=== PATIENT | female | born 1985 | race Two or more races ===

== ENCOUNTER 2022-12-16 22:12 | Emergency (ER) | payer MEDICAID, OTHER ==
[~2022-12-16] VITALS: Ht 167.6 cm; Wt 68.1 kg
[2022-12-16 23:25] LABS: Basophils # (auto) 0.1 10 ^3/uL (0-0.2); Basophils % (auto) 0.9 % (0.0-2.0); Eosinophils # (auto) 0.2 10 ^3/uL (0-0.8); Eosinophils % (auto) 2.7 % (0.0-7.0); Hematocrit 37.7 % (36.0-46.0); Hemoglobin 12.6 g/dL (12.2-16.2); Lymphocytes # (auto) 1.5 10 ^3/uL (0.4-5.4); Lymphocytes % (auto) 16.5 % (10.0-50.0); Mean Corpuscular Hgb Conc. 33.5 g/dL (32.0-36.0); Mean Corpuscular Volume 89.7 fL (80.0-100.0); Monocytes # (auto) 0.6 10 ^3/uL (0-1.3); Monocytes % (auto) 6.4 % (0.0-12.0); Neutrophils # (auto) 6.6 10 ^3/uL (1.6-8.6); Neutrophils % (auto) 73.5 % (37.0-80.0); Nucleated Red Blood Cells % 0.1 %; Red Cell Distribution Width 13.6 % (11.8-14.3)
[2022-12-16 23:40] LABS: Albumin 3.6 g/dL (3.4-5.0); BUN/Creatinine Ratio 9.5 (10.0-20.0); Calcium 8.7 mg/dL (8.5-10.1); Potassium 3.1 mmol/L (3.5-5.1)
[2022-12-16 23:44] LABS: Total Protein 7.1 g/dL (6.4-8.2)
[2022-12-17] MEDS ORDERED: POTASSIUM CHL 20 Meq TABLET PO ONE
[2022-12-17] MEDS ORDERED: SODIUM CHLORIDE 0.9% 1,000 ML IV ONE
[2022-12-17 00:34] LABS: Urine Bacteria FEW /hpf (None Seen); Urine Blood TRACE /uL (Negative); Urine Hyaline Cast FEW /lpf (0 - 2); Urine Mucus FEW (None Seen); Urine Specific Gravity 1.024 (1.001-1.035); Urine WBC 16 /hpf (0 - 5)
[2022-12-17] MEDS ORDERED: ACETAMINOPHEN 325 MG TAB PO ONE (01:00)
[2022-12-17 05:00] VITALS: BP 92/52
== END 2022-12-17 06:17 | disposition home or self-care (01) ==
LOC: ER 22:12 → EDBD 22:12 → ER 12-17 05:44
DX: R55 Syncope and collapse (principal); R42 Dizziness and giddiness
CPT/HCPCS: 36415; 70450; 71045; 80053; 81001; 85025; 93005; 96360; 99285; J7030

== ENCOUNTER 2024-09-28 11:15 | Observation (INO) | payer MEDICAID ==
[~2024-09-28 11:15] MED LIST: NITR-87 PO
--- NOTE | 2024-09-28 12:39 | DVHDS2 ---
Physician Discharge Progress N Final Diagnosis: ptl 33 wks Operations or Procedures: Operations or Procedures nst,sono Condition on Discharge: Good Disposition: Home Discharge Instructions: Diet: Consistent carbohydrate Activity: Light activity Medications: na Follow Up Care: Specialist: 1w Discharge Statement: "Patient was advised to return to the ER or call 911 if any headaches, dizziness, shortness of breath, chest pain, abdominal pain, bleeding, fevers, or worsening of medical condition. Patient was counseled about treatment plan, medications, possible side effects, patientverbalized understanding. All questions were answered to the best of my ability. This discharge took greater then 30 minutes in planning, reviewing documentation, counseling the patient, and discussing with other team members." Visit Coding OBGYN Date of Service: Sep 28, 2024 Billing Provider: JUWAN GAMINO DO GRAPHIC ART SALES REPRESENTATIVE Common Visit Codes: 75961-[id number] OBS CARE (HIGH) GRAPHIC ART SALES REPRESENTATIVE Procedure Codes: 37303-77- NON-STRESS TEST JUWAN GAMINO DO Sep 28, 2024 12:39
[2024-09-28] MEDS ORDERED: NIFE10CA52 PO (13:20)
== END 2024-09-28 13:29 | disposition home or self-care (01) ==
LOC: UNDOADMOB 11:15 → LDRP 11:15
PROVIDERS: ADMIT Obstetrics & Gynecology; ATTEND Obstetrics & Gynecology
DX: O60.03 Preterm labor without delivery, third trimester (principal); Z3A.33 33 weeks gestation of pregnancy; Z79.899 Other long term (current) drug therapy
CPT/HCPCS: 76818; 81002; 94760; G0378

== ENCOUNTER 2024-10-05 06:27 | Observation (INO) | payer MEDICAID ==
[~2024-10-05 06:27] MED LIST changes: +NIFE10CA52 PO
--- NOTE | 2024-10-05 10:41 | DVH ---
CLINICAL HISTORY: labor. COMPARISON: Prior ultrasound dated 03/06/2024. TECHNIQUE: biophysical profile was performed. Transabdominal sonographic images of the fetus we re obtained. Transvaginal examination was also done to evaluate the cervix. FINDINGS: The fetus is in cephalic position. heart rate measures 155 BPM. Amniotic fluid index measures 9.5 cm. The placenta is anterior/fundal in position. No visualized evidence for placenta pre via or abruption. Cervical length measures 3.5 cm on transvaginal examination. Cervix appears closed. BPP profile is an overall score of 8/8, with 2/2 points for breathing, with at least one episode of breathing over a 30 second duration during a 30 minute observation, 2/2 points for m ovements, with 3 or more discrete body or limb movements, 2/2 points for tone, with one or more episodes of extremity extension with return to flexion, or opening and closing of hand, and 2/ 2 points for amniotic fluid, with at least 1 pocket of amniotic fluid that measures 2 cm in 2 perpend icular planes. IMPRESSION: 1. BPP score of 8/8. 2. Cervix appears closed with cervical length measuring 3.5 cm.
--- NOTE | 2024-10-07 08:14 | DVHDS2 ---
Physician Discharge Progress N Final Diagnosis: ptl 34 wks Operations or Procedures: Operations or Procedures nst,sono Condition on Discharge: Good Disposition: Home Discharge Instructions: Diet: Regular Activity: Light activity Medications: na Follow Up Care: Specialist: 1w Discharge Statement: "Patient was advised to return to the ER or call 911 if any headaches, dizzines s, shortness of breath, chest pain, abdominal pain, bleeding, fevers, or worsening of medical condition. Patient was counseled about treatment plan, medications, possible side effects, patientverbalized understanding. All questions were answered to the best of my ability. This discharge took greater then 30 minutes in planning, reviewing documentation, counseling the patient, and discussing with other team members." Visit Coding OBGYN Date of Service: Oct 05, 2024 Billing Provider: JUWAN GAMINO DO ASSEMBLY LEAD PERSON Common Visit Codes: [id number] INP/OBS CARE (HIGH) ASSEMBLY LEAD PERSON Procedure Codes: 12513-51- NON-STRESS TEST JUWAN GAMINO DO Oct 07, 2024 08:14
== END 2024-10-05 11:04 | disposition home or self-care (01) ==
LOC: LDRP 09:30 → UNDOADMOB 09:30 → LDRP 09:44
PROVIDERS: ADMIT Obstetrics & Gynecology; ATTEND Obstetrics & Gynecology
DX: O60.03 Preterm labor without delivery, third trimester (principal); Z3A.34 34 weeks gestation of pregnancy; Z79.899 Other long term (current) drug therapy; Z98.890 Other specified postprocedural states
CPT/HCPCS: 59025; 76817; 76819; 81002; 94760; G0378

== ENCOUNTER 2024-10-12 07:52 | Observation (INO) | payer MEDICAID ==
[2024-10-12] MEDS ORDERED: PREN-96 PO ×2 (08:49)
--- NOTE | 2024-10-12 08:56 | DVH ---
CLINICAL HISTORY: labor. COMPARISON: US BIOPHYSICAL PROFILE on DOS: 10/05/24 TECHNIQUE: biophysical profile was performed. Transabdominal sonographic images of the fetus we re obtained. Transvaginal examination was also performed to evaluate the cervix. FINDINGS: The fetus is in cephalic position. heart rate measures 128 BPM. Amniotic fluid index measures 12.2 cm. The placenta is anterior in position with no evidence of previa or abruption. Cervi x is closed and measures 3.5 cm in length on transvaginal exam. BPP profile is an overall score of 8/8, with 2/2 points for breathing, with at least one episode of breathing over a 30 second duration during a 30 minute observation, 2/2 points for m ovements, with 3 or more discrete body or limb movements, 2/2 points for tone, with one or more episodes of extremity extension with return to flexion, or opening and closing of hand, and 2/ 2 points for amniotic fluid, with at least 1 pocket of amniotic fluid that measures 2 cm in 2 perpend icular planes. IMPRESSION: 1. BPP score of 8/8. 2. Cervix is closed and measures 3.5 cm in length.
--- NOTE | 2024-10-12 17:06 | DVHDS2 ---
Physician Discharge Progress N Final Diagnosis: ptl,ama 35wks Operations or Procedures: Operations or Procedures nst,sono Condition on Discharge: Good Disposition: Home Discharge Instructions: Diet: Regular Activity: Light activity Medications: na Follow Up Care: Specialist: 1w Discharge Statement: "Patient was advised to return to the ER or call 911 if any headaches, dizzi ness, shortness of breath, chest pain, abdominal pain, bleeding, fevers, or worsening of medical condition. Patient was counseled about treatment plan, medications, possible side effects, patientverbalized understanding. All questions were answered to the best of my ability. This discharge took greater then 30 minutes in planning, reviewing documentation, counseling the patient, and discussing with other team members." Visit Coding OBGYN Date of Service: Oct 12, 2024 Billing Provider: JUWAN GAMINO DO CUSTOMER DATA TECHNICIAN Common Visit Codes: [id number]-[id number] INP/OBS CARE (HIGH) CUSTOMER DATA TECHNICIAN Procedure Codes: 98857-07- NON-STRESS TEST JUWAN GAMINO DO Oct 12, 2024 17:06
== END 2024-10-12 09:14 | disposition home or self-care (01) ==
LOC: LDRP 07:52
PROVIDERS: ADMIT Obstetrics & Gynecology; ATTEND Obstetrics & Gynecology
DX: O60.03 Preterm labor without delivery, third trimester (principal); O09.513 Supervision of elderly primigravida, third trimester; Z98.890 Other specified postprocedural states; Z79.899 Other long term (current) drug therapy; Z3A.35 35 weeks gestation of pregnancy
CPT/HCPCS: 59025; 76819; 81002; 94760; G0378

== ENCOUNTER 2024-10-19 07:14 | Observation (INO) | payer MEDICAID ==
[~2024-10-19 07:14] MED LIST changes: +PREN-96 PO
--- NOTE | 2024-10-19 10:37 | DVH ---
CLINICAL HISTORY: labor. Advanced maternal age. COMPARISON: US BIOPHYSICAL PROFILE on DOS: 10/12/24, US BIOPHYSICAL PROFILE on DOS: 10/05/24 TECHNIQUE: biophysical profile was performed. Transabdominal sonographic images of the fetus we re obtained. Transvaginal imaging was performed to evaluate the cervix. FINDINGS: The fetus is in cephalic position. heart rate measures 138 BPM. Amniotic fluid index measures 11.1 cm. The placenta is anterior in position without visualized evidence of previa or abrup tion. Cervix measures 3.5 cm in length on transvaginal images. Cervix is closed. BPP profile is an overall score of 8/8, with 2/2 points for breathing, with at least one episode of breathing over a 30 second duration during a 30 minute observation, 2/2 points for m ovements, with 3 or more discrete body or limb movements, 2/2 points for tone, with one or more episodes of extremity extension with return to flexion, or opening and closing of hand, and 2/ 2 points for amniotic fluid, with at least 1 pocket of amniotic fluid that measures 2 cm in 2 perpend icular planes. IMPRESSION: 1. BPP score of 8/8. 2. Cervix is closed and measures up to 3.5 cm in length.
--- NOTE | 2024-10-21 07:55 | DVHDS2 ---
Physician Discharge Progress N Final Diagnosis: iup at 36wks ptl,ama Operations or Procedures: Operations or Procedures nst reactive reviewed Condition on Discharge: Good Disposition: Home Discharge Instructions: Diet: Regular Activity: No Restrictions, As Tolerated Medications: na Follow Up Care: Specialist: 1w Discharge Statement: "Patient was advised to return to the ER or call 911 if any headaches, dizziness, shortness of breath, chest pain, abdominal pain, bleeding, fevers, or worsening of medical condition. Patient was counseled about treatment plan, medications, possible side effects, patientverbalized understanding. All questions were answered to the best of my ability. This discharge took greater then 30 minutes in planning, reviewing doc umentation, counseling the patient, and discussing with other team members." Visit Coding OBGYN Date of Service: October 19, 2024 Billing Provider: JUWAN GAMINO DO INSTALLATION SUPERVISOR Common Visit Codes: 27150-[id number] OBS CARE (HIGH) INSTALLATION SUPERVISOR Procedure Codes: 84150-99- NON-STRESS TEST JUWAN GAMINO DO October 21, 2024 07:55
== END 2024-10-19 10:50 | disposition home or self-care (01) ==
LOC: UNDOADMOB 09:32 → LDRP 09:32 → UNDODISOB 10:50
PROVIDERS: ADMIT Obstetrics & Gynecology; ATTEND Obstetrics & Gynecology
DX: O60.03 Preterm labor without delivery, third trimester (principal); O09.523 Supervision of elderly multigravida, third trimester; Z98.890 Other specified postprocedural states; Z79.899 Other long term (current) drug therapy; Z3A.36 36 weeks gestation of pregnancy
CPT/HCPCS: 59025; 76817; 76819; 81002; 94760; G0378

== ENCOUNTER 2024-10-26 06:40 | Observation (INO) | payer MEDICAID ==
[~2024-10-26] VITALS: Ht 167.6 cm; Wt 70.8 kg
--- NOTE | 2024-10-26 10:06 | DVH ---
BIOPHYSICAL PROFILE HISTORY: AMA TECHNIQUE: Multiple transabdominal real-time grayscale sonographic images through the gravid uterus of the fetus with duplex Doppler color flow and M-mode spectral analysis FINDINGS: BIOPHYSICAL PROFILE: breathing score: 2 movement score: 2 tone score: 2 Quantitative ESTELA score: 2 (ESTELA: 10.6 Cm.) Total score: 8 The cervix not well visualized. Single live fetus in cephalic presentation. heart rate 131 beats per minute. Anterior placenta without previa or abruption IMPRESSION: Biophysical profile score: 8
--- NOTE | 2024-10-27 12:59 | DVHDS2 ---
Physician Discharge Progress N Final Diagnosis: iup at 37wks ama Operations or Procedures: Operations or Procedures nst reviewed reactive ,sosno Condition on Discharge: Good Disposition: Home Discharge Instructions: Diet: Regular Activity: Light activity Medications: na Follow Up Care: Specialist: 1w Discharge Statement: "Patient was advised to return to the ER or call 911 if any headaches, dizziness, shortness of breath, chest pain, abdominal pain, bleeding, fevers, or worsening of medical condition. Patient was counseled about treatment plan, medications, possible side effects, patient�verbalized understanding. All questions were answered to the best of my ability. This discharge took greater then 30 minutes in planning, reviewing documentation, counseling the patient, and discussing with other team members." Visit Coding OBGYN Date of Service: October 26, 2024 Billing Provider: JUWAN GAMINO DO AIRLINE SECURITY REPRESENTATIVE Common Visit Codes: 55431-JSIIAFG OBS CARE (HIGH) AIRLINE SECURITY REPRESENTATIVE Procedure Codes: 46562-31- NON-STRESS TEST JUWAN GAMINO DO October 27, 2024 12:59
== END 2024-10-26 10:23 | disposition home or self-care (01) ==
LOC: LDRP 08:46 → UNDOADMOB 08:46 → LDRP 08:56
PROVIDERS: ADMIT Obstetrics & Gynecology; ATTEND Obstetrics & Gynecology
DX: O62.9 Abnormality of forces of labor, unspecified (principal); O09.523 Supervision of elderly multigravida, third trimester; Z3A.37 37 weeks gestation of pregnancy; Z79.899 Other long term (current) drug therapy
CPT/HCPCS: 59025; 76819; 81002; 94760; G0378

== ENCOUNTER 2024-11-02 06:39 | Observation (INO) | payer MEDICAID ==
--- NOTE | 2024-11-02 09:57 | DVH ---
BIOPHYSICAL PROFILE HISTORY: AMA TECHNIQUE: Multiple transabdominal real-time grayscale sonographic images through the gravid uterus of the fetus with duplex Doppler color flow and M-mode spectral analysis FINDINGS: BIOPHYSICAL PROFILE: breathing score: 2 movement score: 2 tone score: 2 Quantitative ESTELA score: 2 (ESTELA: 9.2 Cm.) Total score: 8 The cervix not well visualized. Single live fetus in cephalic presentation. heart rate 130 beats per minute. Grade 2 anterior placenta without previa or abruption IMPRESSION: Biophysical profile score: 8/8
--- NOTE | 2024-11-02 11:51 | DVHDS2 ---
Physician Discharge Progress N Final Diagnosis: ama 38wks Operations or Procedures: Operations or Procedures nst reactive reviwed Condition on Discharge: Good Disposition: Home Discharge Instructions: Diet: Regular Activity: Light activity Medications: na Follow Up Care: Specialist: 4d Discharge Statement: "Patient was advised to return to the ER or call 911 if any headaches, dizziness, shortness of breath, chest pain, abdominal pain, bleeding, fevers, or worsening of medical condition. Patient was counseled about treatment plan, medications, possible side effects, patientverbalized understanding. All questions were answered to the best of my ability. This discharge took greater then 30 minutes in planning, reviewing documentation, counseling the patient, and discussing with other team members." Visit Coding OBGYN Date of Service: November 02, 2024 Billing Provider: JUWAN GAMINO DO MANAGER TECHNOLOGY Common Visit Codes: [id number]-[id number] OBS CARE (HIGH) MANAGER TECHNOLOGY Procedure Codes: 85749-43- NON-STRESS TEST JUWAN GAMINO DO November 02, 2024 11:51
== END 2024-11-02 10:10 | disposition home or self-care (01) ==
LOC: LDRP 08:40
PROVIDERS: ADMIT Obstetrics & Gynecology; ATTEND Obstetrics & Gynecology
DX: O09.523 Supervision of elderly multigravida, third trimester (principal); Z3A.38 38 weeks gestation of pregnancy; Z79.899 Other long term (current) drug therapy
CPT/HCPCS: 76819; 81002; 94760; G0378; 59025

== ENCOUNTER 2024-11-03 20:26 | Observation (INO) | payer MEDICAID ==
--- NOTE | 2024-11-08 13:38 | DVHDS2 ---
Physician Discharge Progress N Final Diagnosis: labor check 37wks Operations or Procedures: Operations or Procedures nst reactive reviwed,sono Condition on Discharge: Good Disposition: Home Discharge Instructions: Diet: Regular Activity: No Restrictions, As Tolerated Follow Up/Referral: [facility]:00 AM EL 11/06/24. [facility]. Medications: SIGUQ TOMANDO ALLYSSA PRENATALES Follow Up Care: Specialist: 2d Discharge Statement: "Patient was advised to return to the ER or call 911 if any headaches, dizziness, shortness of breath, chest pain, abdominal pain, bleeding, fevers, or worsening of medical condition. Patient was counseled about treatment plan, medications, possible side effects, patientverbalized understanding. All questions were answered to the best of my ability. This discharge took greater then 30 minutes in planning, reviewing documentation, counseling the patient, and discussing with other team members." Visit Coding OBGYN Date of Service: November 03, 2024 Billing Provider: JUWAN GAMINO DO FINANCIAL SERVICES INTERNSHIP Common Visit Codes: [id number] OBS CARE (HIGH) FINANCIAL SERVICES INTERNSHIP Procedure Codes: 32230-88- NON-STRESS TEST JUWAN GAMINO DO November 08, 2024 13:38
== END 2024-11-03 22:24 | disposition home or self-care (01) ==
LOC: LDRP 20:26
PROVIDERS: ADMIT Obstetrics & Gynecology; ATTEND Obstetrics & Gynecology
DX: O62.9 Abnormality of forces of labor, unspecified (principal); Z98.890 Other specified postprocedural states; Z79.899 Other long term (current) drug therapy; Z3A.38 38 weeks gestation of pregnancy
CPT/HCPCS: 59025; 81002; 94760; G0378

== ENCOUNTER 2024-11-04 01:00 | Observation (INO) | payer MEDICAID ==
[~2024-11-04] VITALS: Ht 167.6 cm; Wt 70.3 kg
--- NOTE | 2024-11-04 02:32 | DVHDS2 ---
Physician Discharge Progress N Final Diagnosis: IUP AT 38WKS DECREASED MOVEMENT ,AMA Operations or Procedures: Operations or Procedures NST REACTIVE REVIEWED,SONO Condition on Discharge: Good Disposition: Home Discharge Instructions: Diet: Regular Activity: No Restrictions, As Tolerated Medications: NA Follow Up Care: Specialist: FU IN 1 DAY Discharge Statement: "Patient was advised to return to the ER or call 911 if any headaches, dizziness, shortness of breath, chest pain, abdominal pain, bleeding, fevers, or worsening of medical condition. Patient was counseled about treatment plan, medications, possible side effects, patientverbalized understanding. All questions were answered to the best of my ability. This discharge took greater then 30 minutes in planning, reviewing documentation, counseling the patient, and discussing with other team members." Visit Coding OBGYN Date of Service: November 04, 2024 Billing Provider: JUWAN GAMINO DO CRAB STEAMER Common Visit Codes: [id number] OBS CARE (HIGH) CRAB STEAMER Procedure Codes: 98040-35- NON-STRESS TEST JUWAN GAMINO DO November 04, 2024 02:32
--- NOTE | 2024-11-04 05:09 | DVH ---
BIOPHYSICAL PROFILE HISTORY: Decreased movement Comparison Study: US BIOPHYSICAL PROFILE on DOS: 11/02/24, US BIOPHYSICAL PROFILE on DOS: 10/26/24, US B IOPHYSICAL PROFILE on DOS: 10/19/24 TECHNIQUE: Multiple real-time grayscale sonographic images through the gravid uterus of the fetus wi th duplex Doppler color flow and M-mode spectral analysis FINDINGS: BIOPHYSICAL PROFILE: breathing score: 2 movement score: 2 tone score: 2 Quantitative ESTELA score: 2 (ESTELA: 0.6 Cm.) Total score: 8 of 8 The cervix not imaged Single live fetus in vertex presentation. heart rate 153 beats per minute. placenta without previa or abruption Single live fetus at 38 weeks 5 days Biophysical profile score 8 of 8 corresponding to an DAVID of 11/13/2024 IMPRESSION: 1. Biophysical profile score: 8 of 8
== END 2024-11-04 03:06 | disposition home or self-care (01) ==
LOC: LDRP 01:00
PROVIDERS: ADMIT Obstetrics & Gynecology; ATTEND Obstetrics & Gynecology
DX: O36.8130 Decreased fetal movements, third trimester, not applicable or unspecified (principal); O09.523 Supervision of elderly multigravida, third trimester; Z98.890 Other specified postprocedural states; Z79.899 Other long term (current) drug therapy; Z3A.38 38 weeks gestation of pregnancy
CPT/HCPCS: 59025; 76819; 81002; 94760; G0378

== ENCOUNTER 2024-11-04 15:30 | Inpatient (IN) | payer MEDICAID ==
[~2024-11-04] VITALS: Ht 167.6 cm; Wt 70.3 kg
[2024-11-04 17:10] LABS: Fern Testing Positive
--- NOTE | 2024-11-04 17:25 | DVHHP2 ---
OB CC & HPI Date Date of Admission: November 04, 2024 Patient Identification: : 4 Para: 3 EGA: 38.5 Chief Complaints: Reason for admission: rupture of membranes History of Present Complaints 39y with Term IUP @ 38.5 wk, admitted with spontaneous rupture of membranes, clear fluid Has contractions every 7 to 10 mins. Denies vaginal bleeding. care w/ Dr Hawkins. Complicated by AMA. Past Medical History Cardiac: No pertinent Hx Pulmonary: No pertinent Hx Central Nervous System: No pertinent Hx GI: No pertinent Hx Hemotology/Oncology: No pertinent Hx Hepatobiliary: No pertinent Hx Psychiatric: No pertinent Hx Musculoskeletal: No pertinent Hx Rheumotologic: No pertinent Hx Infectious Disease: No peritnent Hx ENT: No pertinent Hx Renal/: No pertinent Hx Endocrine: No pertinent Hx Dermatology: No pertinent Hx Past Surgical History: No pertinent Hx OB History OB History Care: Good Care Ultrasounds: Normal mid trimester US Obstetrical Complications: None Medical Complications: None Allergies: Coded Allergies: NO KNOWN ALLERGIES (Unverified , 12/16/22) Home Meds Active Scripts Nitrofurantoin Monohydrate Mac (Macrobid) 100 Mg Cap, 100 MG PO BID for 5 Days, #10 CAP Prov:WENDY DAILEY MD 03/06/24 Reported Medications Vit W/ Ferrous Fumara ( One Daily) Daily Tab, 1 TAB PO DAILY, #90 TAB 3 Refills 10/12/24 Nifedipine (PROCARDIA CAPSULE) 10 Mg Cp, 10 MG PO, CAP 09/28/24 Review of Systems Constitutional: No symptom reported Ears, Nose, & Throat: No symptom reported Eyes: No symptom reported Pulmonary/Respiratory: No symptom reported Cardiovascular: No symptom reported Gastrointestinal: No symptom reported Genitourinary: No symptom reported Musculoskeletal: No symptom reported Skin: No symptom reported Psychiatric: No symptom reported Endocrine: No symptom reported Hemotologic/Lymphatic: No symptom reported OB Admission Exam Physical Exam Vitals: Afeb VS stable (See EHR) HEENT: NCAT Heart: Rhythm Normal Lungs: Clear Abdomen: Gravid Extremities: Normal Reflexes: Normal Cervical Dilatation: 3cm Effacement: Other (70%) Station: -2 Membranes: Ruptured Amniotic Fluid: Clear Heart Rate: 120's Accelerations: Accelerations Present Decelerations: No Decelerations Short Term Variability: Present Inside Account Executive Variability: Average (6-25) Contractions on Admission: 6-10 Minutes Apart Intensity: Mild OB Plan Plan Admitting Diagnosis: Term IUP 38.5 wk, spontaneous PROM AMA Plan: Induction Induction Methd: Pitocin protocol Other Plan: Admit. Pitocin augmentation Epidural, if desired Informed consent obtained for treatment and delivery Visit Coding OBGYN Date of Service: November 04, 2024 Billing Provider: MICHAEL RUIZ DO FIELD SERVICER Common Visit Codes: [id number] INP/OBS CARE (HIGH) MICHAEL RUIZ DO November 04, 2024 17:25
[2024-11-04] MEDS ORDERED: LIDOCAINE 2%HCL (LOCAL ANESTH.) INJ 20ML MDV IJ PRN (18:00)
[2024-11-04] MEDS ORDERED: BUTORPHANOL TARTRATE 2 MG/1 ML VIAL IV PRN ×2 (18:00)
[2024-11-04 18:37] LABS: Urine Bacteria None Seen /hpf (None Seen)
[2024-11-04 18:44] LABS: Basophils # (auto) 0 10 ^3/uL (0-0.2); Basophils % (auto) 0.5 % (0.0-2.0); Eosinophils # (auto) 0.1 10 ^3/uL (0-0.8); Eosinophils % (auto) 1.7 % (0.0-7.0); Hematocrit 36.4 % (36.0-46.0); Hemoglobin 12.1 g/dL (12.2-16.2); Lymphocytes # (auto) 1.7 10 ^3/uL (0.4-5.4); Mean Corpuscular Hemoglobin 29.1 pg (28.0-32.0); Mean Corpuscular Hgb Conc. 33.2 g/dL (32.0-36.0); Mean Corpuscular Volume 87.6 fL (80.0-100.0); Monocytes # (auto) 0.6 10 ^3/uL (0-1.3); Monocytes % (auto) 7.7 % (0.0-12.0); Neutrophils # (auto) 5.6 10 ^3/uL (1.6-8.6); Neutrophils % (auto) 69.1 % (37.0-80.0); Platelet Count (auto) 272 10^3/uL (140-450); Red Blood Cells 4.15 10^6/uL (4.0-5.20); Red Cell Distribution Width 13.8 % (11.8-14.3)
[2024-11-04 18:45] LABS: Urine Blood 1+ /uL (Negative); Urine Clarity Clear (Clear); Urine Color Light-Yellow (Yellow); Urine Protein, UAD Negative (Negative); Urine Specific Gravity 1.009 (1.001-1.035); Urine Squamous Epithelial Cell FEW /hpf (<5); Urine Urobilinogen Normal (Negative); Urine WBC 4 /HPF (0-5); Urine pH 6.5 (5.0-9.0)
[2024-11-04 18:55] LABS: Amphetamine Screen, Urine Neg (NEGATIVE); Barbiturate Scree,Urine Neg (NEGATIVE); Benzodiazephine Screen, Urine Neg (NEGATIVE); Cannabinoid Screen, Urine Neg (NEGATIVE); Cocaine Screen, Urine Neg (NEGATIVE); Opiate Scree,Urine Neg (NEGATIVE); Phencyclidine Screen, Urine Neg (NEGATIVE)
[2024-11-04 18:56] LABS: INR 0.88 (0.9-1.15); Partial Thromboplastin Time 25.1 SEC (24.5-34.5); Prothrombin Time 9.4 sec (9.3-11.8)
[2024-11-04 18:58] LABS: Alanine Aminotransferase 13 U/L (7-40); Anion Gap 13 (5-15); Aspartate Aminotransferase 27 U/L (13-40); BUN/Creatinine Ratio 15.1 (10.0-20.0); Bilirubin, Total 0.7 mg/dL (0.2-1.0); Blood Urea Nitrogen 11 mg/dL (9-23); Chloride 105 mmol/L (98-107); Glucose 92 mg/dL (74-106); Sodium 138 mmol/L (136-145)
[2024-11-04 19:01] LABS: Alkaline Phosphatase 216 U/L (46-116); Calcium 8.4 mg/dL (8.7-10.4); Carbon Dioxide 20 mmol/L (20-31); Potassium 3.4 mmol/L (3.5-5.1)
[2024-11-04] MEDS: LACTATED RINGER'S 1,000 ML IV SCH (19:02)
[2024-11-04] MEDS ORDERED: TERBUTALINE SULFATE 1 MG/ML 1ML VIAL SC PRN (20:00)
[2024-11-04] MEDS ORDERED: LACTATED RINGER'S 1,000 ML IV ONE (21:00)
[2024-11-04] MEDS ORDERED: NALOXONE HCL 0.4 MG/ML VIAL IV ONE (21:00)
[2024-11-04] MEDS ORDERED: LIDOCAINE 2%HCL (LOCAL ANESTH.) INJ 10ml MDV IJ ONE (21:00)
[2024-11-04] MEDS ORDERED: ePHEDrine SULFATE 50 MG/ML AMP IV ONE ×2 (21:00→21:30)
[2024-11-04] MEDS ORDERED: LIDOCAINE HCL 2 %PF INJ 10ML AMP IJ ONE (21:30)
[2024-11-05] MEDS: LACT. RINGERS/OXYTOCIN 20UNITS 1,000 ML IV SCH (00:02)
[2024-11-05] MEDS: WITCH HAZEL-GLYCERIN PAD TOP PRN (00:10)
[2024-11-05] MEDS: DERMOPLAST 60ML BOTTLE TOP PRN (00:10)
[2024-11-05] MEDS: PHISODERM TOP SOLN 240ML BTL TOP PRN (00:10)
[2024-11-05] MEDS: ROPIVACAINE HCL 200 ML ONE (05:35)
--- NOTE | 2024-11-05 07:20 | LDN2 ---
Labor and Delivery Note Date 11/05/24 Age 39 4 Para 4 EGA 38.6 Diagnosis PROM < 39 wk Vaginal Delivery: VTX Vacuum Assisted: No Placenta: Spontaneous Sex: Female Weight Pending Apgars 8/9 Amniotic Fluid: Clear Anesthesia Epidural Episiotomy: No Repaired with N/A no lacerations EBL 100 mL Labs Blood Bank 11/04/24 18:19: Blood Type O POSITIVE Complications None Comments/Significant Med Thad uncomplicated doing well To for recovery Visit Coding OBGYN Date of Service: November 05, 2024 Billing Provider: MICHAEL RUIZ DO UNDERWRITING OPERATIONS MANAGER Common Visit Codes: PROCEDURE ONLY UNDERWRITING OPERATIONS MANAGER Procedure Codes: [id number] OB CARE,VAG DELIVERY MICHAEL RUIZ DO November 05, 2024 07:20
[2024-11-05] MEDS ORDERED: ONDANSETRON ODT 4 MG TAB PO PRN (07:45)
[2024-11-05] MEDS ORDERED: ACETAMINOPHEN 325 MG TAB PO PRN (07:45)
[2024-11-05] MEDS: LACT. RINGERS/OXYTOCIN 20UNITS 500 ML IV ONE ×2 (08:00)
[2024-11-05 11:01] VITALS: BP 129/58; PULSE 96; RESP 18; TEMP 98.8
[2024-11-05 19:00] VITALS: BP 96/58; PULSE 69; RESP 14; TEMP 98.4; O2SAT 98
[2024-11-05] MEDS: IBUPROFEN 600 MG TAB PO PRN (19:45)
[2024-11-05 23:30] VITALS: BP 95/57; PULSE 63; RESP 16; TEMP 98.2; O2SAT 95
[2024-11-06 03:00] VITALS: BP 100/56; PULSE 84; RESP 14; TEMP 98.4; O2SAT 96
--- NOTE | 2024-11-06 03:14 | DVHDS2 ---
Physician Discharge Progress N Final Diagnosis: Term , delivered Operations or Procedures: Operations or Procedures Commentary: Commentary Normal labor/ delivery and course Condition on Discharge: Stable Disposition: Home Discharge Instructions: Diet: Regular Activity: Light activity Activity comment: Pelvic rest x 6 weeks Follow Up/Referral: [address] Hawkins Medications: Ibuprofen PRN pain Follow Up Care: Discharge Statement: "Patient was advised to return to the ER or call 911 if any headaches, dizziness, shortness of breath, chest pain, abdominal pain, bleeding, fevers, or worsening of medical condition. Patient was counseled about treatment plan, medications, possible side effects, patientverbalized understanding. All questions were answered to the best of my ability. This discharge took greater then 30 minutes in planning, reviewing documentation, counseling the patient, and discussing with other team members." Visit Coding OBGYN Date of Service: November 06, 2024 Billing Provider: MICHAEL RUIZ DO NOVELTY CANDY MAKER Common Visit Codes: 84741-VBE/OBS DISCH DAY <30MIN MICHAEL RUIZ DO November 06, 2024 03:14
[2024-11-06] MEDS ORDERED: IBU600T PO (03:20)
[2024-11-06 07:00] VITALS: BP 103/63; PULSE 60; RESP 16; TEMP 98; O2SAT 99
[2024-11-06 11:00] VITALS: BP 110/64; PULSE 63; RESP 16; TEMP 97.9; O2SAT 99
[2024-11-06 14:17] VITALS: BP 112/74; PULSE 70; RESP 16; TEMP 98.3; O2SAT 98
== END 2024-11-06 14:17 | disposition home or self-care (01) | DRG 560 ==
LOC: UNDOADMOB 15:30 → LDRP 15:30 → OBSVTOIN 17:15 → LDRP 18:40
PROVIDERS: ADMIT Obstetrics & Gynecology; ATTEND Obstetrics & Gynecology
PROC: 10E0XZZ Delivery of Products of Conception, External Approach (ICD-10-PCS; principal; 2024-11-05)
PROC: 3E0R3BZ Introduction of Anesthetic Agent into Spinal Canal, Percutaneous Approach (ICD-10-PCS; 2024-11-05)
PROC: 00HU33Z Insertion of Infusion Device into Spinal Canal, Percutaneous Approach (ICD-10-PCS; 2024-11-05)
DX: O42.02 Full-term premature rupture of membranes, onset of labor within 24 hours of rupture (principal); Z37.0 Single live birth; Z3A.38 38 weeks gestation of pregnancy
CPT/HCPCS: 36415; 59025; 59409; 80053; 80307; 81001; 81002; 84112; 85025; 85610; 85730; 86780; 86803; 86850; 86900; 86901; 94760; 94762; 96360; 96361; 96365; 96366; G0378; J2590